=== PATIENT | male | born 1970 | race Caucasian/White ===

== ENCOUNTER 2018-07-29 08:34 | Inpatient (IN) | payer OTHER ==
[~2018-07-29] VITALS: Ht 162.6 cm; Wt 69.0 kg
[2018-07-30] MEDS ORDERED: Investigational Drug 150 MG in NS 48 ML IV ONE ×4 (08:00)
[2018-07-30] MEDS ORDERED: BIKTARVY ORAL SCH (12:00)
[2018-07-31] MEDS ORDERED: Patient's Own Med ORAL (20:24)
--- NOTE | 2018-08-12 15:15 | NUR ---
NURSE NOTES: Patient admitted for clinical study in stable condition. Orientation was given. Questions answered. Bed in lowest position, call light within reach. Will continue to monitor.
[2018-08-12 15:20] VITALS: BP 120/75
--- NOTE | 2018-08-12 15:25 | History & Physical ---
History and Physical History & Physicial Full note dictated #[id number]. 48 yo male admitted for 2 of 5 infusions of IP per [employer] protocol GS- [id number]. He feels well apart from getting over a minor cold. Exam performed this afternoon in office is normal. We will dose him tomorrow and observe the next two nights in hospital. All questions raised were addressed. Thong Marks MD Aug 12, 2018 15:25
[2018-08-12 16:19] LABS: BASOPHILS % (AUTO) 0.7 % (0.0-2.0); EOSINOPHILS % (AUTO) 3.6 % (0.0-3.0); HEMATOCRIT 44.9 % (42.0-52.0); HEMOGLOBIN 15.4 G/DL (14.2-18.0); LYMPHOCYTES % (AUTO) 30.3 % (20.0-45.0); MEAN CORPUSCULAR VOLUME 90 FL (80-99); MONOCYTES % (AUTO) 6.9 % (1.0-10.0); NEUTROPHILS % (AUTO) 58.4 % (45.0-75.0); PLATELET COUNT 229 K/UL (150-450); RED BLOOD COUNT 4.98 M/UL (4.70-6.10); RED CELL DISTRIBUTION WIDTH 11.5 % (11.6-14.8); WHITE BLOOD COUNT 7.3 K/UL (4.8-10.8)
--- NOTE | 2018-08-12 17:00 | NUR ---
NURSE NOTES: Patient's will bring Biktarby, home meds tomorrow per patient.
--- NOTE | 2018-08-12 19:46 | NUR ---
HAND-OFF: Report given to CESAR Murillo.
--- NOTE | 2018-08-12 19:47 | NUR ---
NURSE NOTES: Received report & pt from CESAR Estrella. pt lying in bed, a&ox4, in room air. No s/s of acute distress & no c/o pain at this time. Skin intact. Pt aware of NPO status except water at midnight & strict NPO @ 0700 tomorrow (08/13). Per pt, he will have his family member bring his home med Biktarvy around morning or afternoon. Will endorse to next shift. Bed in lowest position, call light within reach. Will continue to monitor.
[2018-08-12] MEDS ORDERED: BIKTARVY 50-201 EACH PO (19:57)
[2018-08-12 20:00] VITALS: BP 138/89
--- NOTE | 2018-08-12 20:15 | History and Physical Report ---
DATE OF ADMISSION: 08/12/2018 CHIEF COMPLAINT: The patient is admitted electively for participation in [employer] Clinical Trial [id number]. HISTORY OF PRESENT ILLNESS: The patient is a 48-year-old man followed in our office for well-controlled HIV infection. He is now admitted for his second of 5 planned infusions of investigational agent. PAST MEDICAL HISTORY: The patient was diagnosed with HIV in 2001 and has been on Biktarvy most recently. There is no history of virologic failure. The patient took Fosamax for osteoporosis, but is not on this recently. There is history of syphilis in 2010 and 2017 as well as herpes simplex in 2014. PAST SURGICAL HISTORY: None. ALLERGIES: Penicillin makes him have hiccups. SOCIAL HISTORY: The patient was born in [place]. He works in [place]. He has and 2 pet cats. He does not smoke cigarettes. He drinks socially. No current history of recreational drug use. REVIEW OF SYSTEMS: No fevers. The patient has had a mild cold for the past few days with nonproductive cough and slight sore throat. Denies nausea, vomiting, or diarrhea. Denies dysuria or hematuria. No headaches or rashes. MEDICATIONS: As an outpatient included Biktarvy 1 tablet daily. PHYSICAL EXAMINATION: GENERAL: Revealed a well-nourished, well-developed male in no acute distress. He is alert and oriented x4. VITAL SIGNS: Temperature was 98.0, heart rate was 77 and regular, blood pressure was 118/74. His weight was 155.8 pounds. His respiratory rate was 16. HEENT: Normocephalic, atraumatic. Pupils equal, round, reactive. Oropharynx was without thrush. The pharynx was not inflamed. NECK: Supple. There is no cervical or axillary adenopathy palpable. LUNGS: Clear to auscultation. HEART: Regular rhythm without murmurs or gallops. ABDOMEN: Soft and nontender. There is no hepatosplenomegaly. EXTREMITIES: Without cyanosis, clubbing, or edema. NEUROLOGIC: There is no focal motor or sensory deficits on exam. LABORATORY DATA: Pending. IMPRESSION: 1. Participation in the above-referenced clinical trial. 2. HIV infection, well controlled. 3. History of osteoporosis. 4. History of syphilis. 5. History of herpes simplex. DISCUSSION: The patient is a very pleasant 48-year-old man who wishes to continue participation in clinical trial. Our plan will be to infuse in the morning and to monitor him the following 2 nights. He is agreeable to this and continues to give his informed consent to participate. PLAN: Proceed per protocol. Thong Marks M.D. DR: Deann JOB#: [id number] CC: Thong Marks M.D.; [address] [place] [address], [address]; [place] [address]; Fax#: [phone] [facility]
--- NOTE | 2018-08-13 07:30 | NUR ---
HAND-OFF: Report given to CEASR Castillo. ED called for IV start for pt per Dr. Marks. Charge nurse mEilee & Head Of Product Brittani krishna.
--- NOTE | 2018-08-13 07:45 | NUR ---
NURSE NOTES: Report received from outgoing RN, rounds made. Patient laying in supine position in bed, being prepared for IV insertion by CATALYST IMPREGNATOR. Dr. Marks and his staff are at the bedside. Patient alert, oriented x4, calm. No complains of pain/SOB/NV. Call light in reach, bed in lowest position. Will continue to monitor.
[2018-08-13 08:00] VITALS: BP 130/88
[2018-08-13] MEDS ORDERED: Investigational Drug 150 MG in NS 48 ML IV ONE (08:00)
--- NOTE | 2018-08-13 08:05 | NUR ---
RN inserted IV 20g to RAC and left forearm on the 1st attempt. Patient tolerated the procedure without difficulty.
--- NOTE | 2018-08-13 09:28 | NUR ---
CASE MANAGEMENT:REVIEW 48 YR OLD MALE CLINICAL TRIAL ADMITTED FOR 2 TO 5 INFUSIONS OF IP PER [employer]
--- NOTE | 2018-08-13 09:43 | General Progress Note ---
Progress Note Progress Note S: Patient doing well, tolerated the infusion of IP this morning without AEs O: VSS Afebrile HEENT: nc/at Neck: supple Lungs: clear a/p Cor: reg rythmn, rate Abd: soft, nt Ext: no c/c/e Neuro: non-focal Labs Test 08/12/18 15:40 White Blood Count 7.3 K/UL (4.8-10.8) Red Blood Count 4.98 M/UL (4.70-6.10) Hemoglobin 15.4 G/DL (14.2-18.0) Hematocrit 44.9 % (42.0-52.0) Mean Corpuscular Volume 90 FL (80-99) Mean Corpuscular Hemoglobin 31.0 PG (27.0-31.0) Mean Corpuscular Hemoglobin Concent 34.4 G/DL (32.0-36.0) Red Cell Distribution Width 11.5 % (11.6-14.8) Platelet Count 229 K/UL (150-450) Mean Platelet Volume 6.4 FL (6.5-10.1) Neutrophils (%) (Auto) 58.4 % (45.0-75.0) Lymphocytes (%) (Auto) 30.3 % (20.0-45.0) Monocytes (%) (Auto) 6.9 % (1.0-10.0) Eosinophils (%) (Auto) 3.6 % (0.0-3.0) Basophils (%) (Auto) 0.7 % (0.0-2.0) A: 1) Participation in [id number], doing well. 2) HIV infection, well-controlled P: 1) Continue per protocol. 2) Will observe 2 nights in hospital and tentatively plan d/c in AM 08/15. 3) pt will have CBC locally in AM Thong Marks MD Aug 13, 2018 09:43
[2018-08-13 12:00] VITALS: BP 132/92
[2018-08-13 15:50] VITALS: BP 159/104
--- NOTE | 2018-08-13 16:00 | NUR ---
NURSE NOTES: Patient home medication Biktarvy taken to pharmacy in proper transporting bag and label, to be package for patient dosing schedule, slip in chart, patient aware and verbalized understanding.
--- NOTE | 2018-08-13 19:50 | NUR ---
HAND-OFF: Report given to Kasia GUERRERO.
--- NOTE | 2018-08-13 20:00 | NUR ---
NURSE NOTES: Received pt in bed, AOX4, denies any pain, no distress noted. Bed in lowest position and locked, side rails up x 2, call light within reach. Will continue to monitor.
[2018-08-13] MEDS ORDERED: BIKTARVY ORAL SCH (21:00)
[2018-08-14 02:00] VITALS: BP 111/77
--- NOTE | 2018-08-14 07:02 | NUR ---
HAND-OFF: Report given to CESAR Durham. Pt in stable condition.
[2018-08-14 08:00] VITALS: BP 125/83
--- NOTE | 2018-08-14 08:00 | NUR ---
NURSE NOTES: Received report from Aurelio Encarnacion pt a/a/o x4 with no signs of distress or other issues at this time. pt on a regular diet, and tolerating well with no n/v. pt able to ambulate the room with steady gait. call light within reach. bed in lowest position, side rales up x2. I will f/u as needed.
[2018-08-14 08:39] LABS: BASOPHILS % (AUTO) 1.1 % (0.0-2.0); EOSINOPHILS % (AUTO) 4.3 % (0.0-3.0); HEMATOCRIT 43.9 % (42.0-52.0); HEMOGLOBIN 15.2 G/DL (14.2-18.0); LYMPHOCYTES % (AUTO) 32.3 % (20.0-45.0); MEAN CORPUSCULAR VOLUME 89 FL (80-99); MONOCYTES % (AUTO) 6.9 % (1.0-10.0); NEUTROPHILS % (AUTO) 55.4 % (45.0-75.0); PLATELET COUNT 212 K/UL (150-450); RED BLOOD COUNT 4.92 M/UL (4.70-6.10); RED CELL DISTRIBUTION WIDTH 11.7 % (11.6-14.8)
[2018-08-14 12:00] VITALS: BP 118/82
--- NOTE | 2018-08-14 14:53 | General Progress Note ---
Progress Note Progress Note S: Pt doing well today. He reports having had a moderate headache yesterday afternoon which has now resolved; pt took 2 Tylenol. O: VSS Afebrile. HEENT: nc/at Neck: supple Lungs: clear Cor: reg, no murmur Abd: soft, NT Neuro: non-focal for motor or sensory deficits Labs Test 08/12/18 15:40 08/14/18 08:15 White Blood Count 7.3 K/UL (4.8-10.8) 6.0 K/UL (4.8-10.8) Red Blood Count 4.98 M/UL (4.70-6.10) 4.92 M/UL (4.70-6.10) Hemoglobin 15.4 G/DL (14.2-18.0) 15.2 G/DL (14.2-18.0) Hematocrit 44.9 % (42.0-52.0) 43.9 % (42.0-52.0) Mean Corpuscular Volume 90 FL (80-99) 89 FL (80-99) Mean Corpuscular Hemoglobin 31.0 PG (27.0-31.0) 30.8 PG (27.0-31.0) Mean Corpuscular Hemoglobin Concent 34.4 G/DL (32.0-36.0) 34.5 G/DL (32.0-36.0) Red Cell Distribution Width 11.5 % (11.6-14.8) 11.7 % (11.6-14.8) Platelet Count 229 K/UL (150-450) 212 K/UL (150-450) Mean Platelet Volume 6.4 FL (6.5-10.1) 6.8 FL (6.5-10.1) Neutrophils (%) (Auto) 58.4 % (45.0-75.0) 55.4 % (45.0-75.0) Lymphocytes (%) (Auto) 30.3 % (20.0-45.0) 32.3 % (20.0-45.0) Monocytes (%) (Auto) 6.9 % (1.0-10.0) 6.9 % (1.0-10.0) Eosinophils (%) (Auto) 3.6 % (0.0-3.0) 4.3 % (0.0-3.0) Basophils (%) (Auto) 0.7 % (0.0-2.0) 1.1 % (0.0-2.0) A: 1) participation in [id number] 2) HIV, well controlled 3) Headache, resolved P: 1) Continue to observe per protocol 2) Will plan on discharge tomorrow morning, with follow-up in the office next week. Thong Marks MD Aug 14, 2018 14:53
[2018-08-14] MEDS ORDERED: BIKTARVY ORAL SCH (15:00)
[2018-08-14 16:00] VITALS: BP 128/78
--- NOTE | 2018-08-14 19:21 | NUR ---
NURSE NOTES:Patient received tre Haywood R.N. . Patient A/A/AOX4 . Patient denies ny pain at this time . no s/s of distress LFA g#20 H/L patent and intact . call light within reach . bed in low position at all times . will continue to monitor.
--- NOTE | 2018-08-14 19:21 | NUR ---
HAND-OFF: Report given to Astrid LEDGER CLERK, pt in stable condition.
[2018-08-14] MEDS ORDERED: Patient's Own Med ORAL (21:13)
--- NOTE | 2018-08-15 07:10 | NUR ---
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 and check patient personal belongings .
[2018-08-15 07:51] VITALS: BP 119/81
--- NOTE | 2018-08-15 08:00 | NUR ---
NURSE NOTES: Received report from Astrid GUERRERO, pt a/a/o x4 laying in bed with no signs of distress or other issues at this time. Iv on the left FA gauge#20 heplock. call light within reach. bed in lowest position. side rales up x2. I will f/u as needed.
--- NOTE | 2018-08-15 08:38 | NUR ---
NURSE NOTES: discharge instructions and belongings given to patient as well as his home medications. pt left the floor walking with no signs of distress or other issues at this time. pt's family will provide transportation. I will f/u as needed.
[2018-08-15 09:15] LABS: BASOPHILS % (AUTO) 0.7 % (0.0-2.0); EOSINOPHILS % (AUTO) 3.8 % (0.0-3.0); HEMATOCRIT 44.5 % (42.0-52.0); HEMOGLOBIN 15.1 G/DL (14.2-18.0); LYMPHOCYTES % (AUTO) 36.2 % (20.0-45.0); MEAN CORPUSCULAR VOLUME 90 FL (80-99); MONOCYTES % (AUTO) 7.2 % (1.0-10.0); NEUTROPHILS % (AUTO) 52.2 % (45.0-75.0); PLATELET COUNT 211 K/UL (150-450); RED BLOOD COUNT 4.92 M/UL (4.70-6.10); RED CELL DISTRIBUTION WIDTH 12.1 % (11.6-14.8); WHITE BLOOD COUNT 6.3 K/UL (4.8-10.8)
--- NOTE | 2018-08-15 18:15 | Discharge Summary ---
DATE OF ADMISSION: 08/12/2018 DATE OF DISCHARGE: 08/15/2018 DISCHARGE DIAGNOSES: 1. Participation in [employer] clinical trial [id number]. 2. Human immunodeficiency virus infection, well controlled. 3. History of osteoporosis. 4. History of syphilis. 5. History of herpes simplex. HISTORY OF PRESENT ILLNESS AND HOSPITAL COURSE: The patient is a 48-year-old man followed in our office for HIV infection which has been well controlled on Biktarvy for some time. There is no history of virologic failure in the past in this patient. He was given the opportunity to participate in the above mentioned clinical trial and was admitted for the second of planned 5 infusions of investigational product (or placebo) on a biweekly basis. The patient wished to participate and was admitted. The patient tolerated the infusion well. The patient reported [id number] headache several hours after the infusion, but this resolved with Tylenol and the patient currently has no complaints. He was discharged to home in good condition. Follow-up will be in the office next week. DISCHARGE MEDICATIONS: Biktarvy one tablet daily. Thong Marks M.D. DR: KEZIA JOB#: [id number] CC: Thong Marks M.D.; [address] [place] [address], [address]; ; [place] [address]; Fax#: [phone]
== END 2018-08-15 08:40 | disposition home or self-care (01) | DRG 977 ==
LOC: 3E 08-12 15:09
DX: B20 Human immunodeficiency virus [HIV] disease (principal); Z00.6 Encounter for examination for normal comparison and control in clinical research program; M81.0 Age-related osteoporosis without current pathological fracture; R51 Headache; Z86.19 Personal history of other infectious and parasitic diseases
CPT/HCPCS: 36415; 85025

== ENCOUNTER 2018-07-29 08:47 | Inpatient (IN) | payer OTHER ==
[~2018-07-29] VITALS: Ht 162.6 cm; Wt 68.7 kg
--- NOTE | 2018-07-29 16:00 | NUR ---
NURSE NOTES: Patient arrived to unit via direct admission. Stable on arrival, no s/s acute distress, ambulatory. Per order from Dr. Marks, patient only needs vital signs assessed 12 and 18 hours after infusion. Patient oriented to room and unit policies, plan of care and reports understanding. Belongings checked with patient and RN. Side rails upx2, bed low and locked, call light in reach. Will continue to monitor.
--- NOTE | 2018-07-29 16:08 | History & Physical ---
History and Physical History & Physicial Full note dictated #[id number]. 48 yo male admitted today for participation in [employer] clinical trial [id number]. He has chronic stable HIV infection on Bictarvy with excellent virologic control and preserved CD4 counts. He has no significant comorbidities. PE: T 97.9 HEENT: n/c Neck: supple Lungs: clear Cor: reg Abd: soft, NT A: 1) HIV infection, well controled 2) h/o osteoporosis P: 1) manage per protocol. We plan to infuse him tomorrow morning. He has been briefed in detail regarding unknown risks and benefits associated with this medication, and has verbalized understanding and his desire to proceed. All questions offered were addressed. Thong Marks MD Jul 29, 2018 16:08
[2018-07-29 16:58] LABS: BASOPHILS % (AUTO) 0.6 % (0.0-2.0); EOSINOPHILS % (AUTO) 1.9 % (0.0-3.0); HEMATOCRIT 46.7 % (42.0-52.0); HEMOGLOBIN 15.8 G/DL (14.2-18.0); LYMPHOCYTES % (AUTO) 35.7 % (20.0-45.0); MEAN CORPUSCULAR VOLUME 92 FL (80-99); MONOCYTES % (AUTO) 7.3 % (1.0-10.0); NEUTROPHILS % (AUTO) 54.6 % (45.0-75.0); PLATELET COUNT 234 K/UL (150-450); RED BLOOD COUNT 5.09 M/UL (4.70-6.10); RED CELL DISTRIBUTION WIDTH 11.7 % (11.6-14.8); WHITE BLOOD COUNT 7.2 K/UL (4.8-10.8)
--- NOTE | 2018-07-29 19:30 | History and Physical Report ---
DATE OF ADMISSION: 07/29/2018 INPATIENT HISTORY AND PHYSICAL CHIEF COMPLAINT: The patient is admitted for participation in [employer] clinical trial, [id number]. HISTORY OF PRESENT ILLNESS: The patient is a 48-year-old man followed by Dr. Thong Jensen for HIV infection, which is well controlled. He is electively admitted for participation in the above drug study. PAST MEDICAL HISTORY: The patient had the usual childhood diseases. He was diagnosed with HIV in 2001 without any baseline resistance. He has most recently been on Biktarvy. He has never had virologic failure. There is also history of osteoporosis, for which he took Fosamax, but discontinued this several months ago. There is a history of syphilis in 2010 and 2017 and herpes simplex in 2014. PAST SURGICAL HISTORY: None. PREVIOUS HOSPITALIZATIONS: None. ALLERGIES: The patient states that penicillins make him have hiccups. SOCIAL HISTORY: The patient was born in [place]. 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 He does not smoke cigarettes. He drinks socially. There is no current history of recreational drug use. REVIEW OF SYSTEMS: No fevers. No cough or shortness of breath. No nausea, vomiting, or diarrhea. No dysuria or hematuria. No headaches. No rashes. CURRENT MEDICATIONS: Biktarvy one tablet daily. PHYSICAL EXAMINATION: VITAL SIGNS: Temperature of 97.7, heart rate of 76, and blood pressure of 132/82, his weight was 154 pounds, and respirations were 17. HEENT: Normocephalic and atraumatic. Pupils are equal, round, and reactive. Oropharynx was without thrush or leukoplakia. NECK: Supple. LUNGS: Clear to auscultation. HEART: Regular rhythm without murmurs or gallops. ABDOMEN: Soft and nontender. No hepatosplenomegaly. EXTREMITIES: Without cyanosis, clubbing, or edema. NEUROLOGIC: Grossly nonfocal. LABORATORY DATA: Pending. ASSESSMENT: 1. HIV infection, well controlled. 2. History of osteoporosis. DISCUSSION: The patient is a very pleasant 48-year-old man, who electively admitted for participation in a clinical trial. He has given his consent to participate in this trial. He will receive investigational agent tomorrow morning and we anticipate he will be discharged on Thursday. He will be observed closely for adverse events. PLAN: Proceed per protocol. Thong Marks M.D. DR: KEZIA JOB#: [id number] CC: LIZANDRO
[2018-07-29] MEDS: BIKTARVY ORAL SCH (19:32)
--- NOTE | 2018-07-29 19:45 | NUR ---
HAND-OFF: Report given to Jazz GUERRERO. Patient in stable condition.
--- NOTE | 2018-07-29 22:16 | NUR ---
NURSE NOTES: Patient is aaox4. No signs of distress. Per Dr. Marks, IV's will be started in morning, after 0700. Bed low, call light within reach.
--- NOTE | 2018-07-30 07:28 | NUR ---
HAND-OFF: Report given to CESAR Machuca. Patient stable.
[2018-07-30] MEDS ORDERED: Investigational Drug 150 MG in NS 48 ML IV ONE ×4 (08:00)
--- NOTE | 2018-07-30 08:22 | NUR ---
NURSE NOTES: Received report from Jazz GUERRERO. During rounds patient is awake alert and oriented x4, in bed. No s/s acute distress noted. Dr. Marks is at the bedside, per order from MD, 2 IV's inserted, RAC 20G and left hand 20G, patent and flushing well. Clinical trial drug started with Dr. Marks at the bedside supervising. MD will remain at the bedside for remainder of infusion. No s/s acute distress. Clinical trial nurses at the bedside as well. Side rails upx2, bed low and locked, call light in reach. Will continue to monitor.
[2018-07-30] MEDS ORDERED: BIKTARVY ORAL SCH (12:00)
--- NOTE | 2018-07-30 16:27 | General Progress Note ---
Progress Note Progress Note S: no new complaints. Pt tolerated infusion of IP well this morning. O: VSS Afebrile HEENT: nc/AT Neck: supple Lungs: clear a/ Cor: reg rhythm Abd: soft, NT Ext: no c/c/e Labs Test 07/29/18 15:20 White Blood Count 7.2 K/UL (4.8-10.8) Red Blood Count 5.09 M/UL (4.70-6.10) Hemoglobin 15.8 G/DL (14.2-18.0) Hematocrit 46.7 % (42.0-52.0) Mean Corpuscular Volume 92 FL (80-99) Mean Corpuscular Hemoglobin 31.1 PG (27.0-31.0) Mean Corpuscular Hemoglobin Concent 33.9 G/DL (32.0-36.0) Red Cell Distribution Width 11.7 % (11.6-14.8) Platelet Count 234 K/UL (150-450) Mean Platelet Volume 5.6 FL (6.5-10.1) Neutrophils (%) (Auto) 54.6 % (45.0-75.0) Lymphocytes (%) (Auto) 35.7 % (20.0-45.0) Monocytes (%) (Auto) 7.3 % (1.0-10.0) Eosinophils (%) (Auto) 1.9 % (0.0-3.0) Basophils (%) (Auto) 0.6 % (0.0-2.0) A: 1) Participation in [id number]. Pt doing well, no AEs noted 2) HIV P: 1) Continue management per protocol 2) check local CBC in AM 3) tentative plan for d/c 08/01 Thong Marks MD Jul 30, 2018 16:27
[2018-07-30] MEDS: BIKTARVY ORAL SCH (18:56)
--- NOTE | 2018-07-30 19:00 | NUR ---
NURSE NOTES: Patient reported tenderness around left hand IV site. No redness, leaking or signs of infiltration noted, but patient reported that the IV was painful and requested for it to be removed. IV removed intact.
--- NOTE | 2018-07-30 19:30 | NUR ---
HAND-OFF: Report given to Kadie GUERRERO. Patient in stable condition.
--- NOTE | 2018-07-30 19:30 | NUR ---
NURSE NOTES: Pt lying in bed w/bed in lowest position and call light within reach. Pt A&Ox4, VSS, and in no apparent distress at this time. Pt has no IV access at this time and has no complaints or concerns at this time. Reminded pt nurse aide will take VS at 0200 tomorrow morning; pt verbalized understanding. Will continue to monitor.
[2018-07-31 02:00] VITALS: BP 109/77
--- NOTE | 2018-07-31 07:20 | NUR ---
HAND-OFF: Report given to CESAR Bermeo.
--- NOTE | 2018-07-31 07:47 | General Progress Note ---
Progress Note Progress Note S: Feels well, had mild nausea last night he thinks was a result of being stuck for IVs. This has resolved, and he has an appetite. O: VSS. Afebrile. HEENT: nc/at Lungs: clear Cor: reg no murmur Abd: soft, NT Ext: no c/c/e LAB CBC to be done this AM A: 1) participation in [id number] 2) HIV, well-controlled P: 1) Continue to manage per protocol for the next 24 hours; anticipate discharge in AM 10. Thong Marks MD Jul 31, 2018 07:47
--- NOTE | 2018-07-31 07:52 | NUR ---
NURSE NOTES: AWAKE/ALERT. NO C/O PAIN . IN NO DISTRESS.
[2018-07-31 08:00] VITALS: BP 107/74
[2018-07-31 08:24] LABS: BASOPHILS % (AUTO) 0.8 % (0.0-2.0); EOSINOPHILS % (AUTO) 1.7 % (0.0-3.0); HEMOGLOBIN 15.3 G/DL (14.2-18.0); LYMPHOCYTES % (AUTO) 32.3 % (20.0-45.0); MEAN CORPUSCULAR VOLUME 91 FL (80-99); MONOCYTES % (AUTO) 6.4 % (1.0-10.0); NEUTROPHILS % (AUTO) 58.8 % (45.0-75.0); PLATELET COUNT 218 K/UL (150-450); RED BLOOD COUNT 4.95 M/UL (4.70-6.10); WHITE BLOOD COUNT 5.8 K/UL (4.8-10.8)
--- NOTE | 2018-07-31 18:59 | NUR ---
NURSE NOTES: CONDITION STABLE. IN NO DISTRESS.
[2018-07-31] MEDS: BIKTARVY ORAL SCH (19:03)
--- NOTE | 2018-07-31 19:05 | NUR ---
NURSE NOTES: Report taken from CESAR Bermeo. Patient A&Ox4. No signs of distress on room air, no pain. Patient is here for clinical trial for Dr. Marks. Vitals stable. Bed in lowest position, call light within reach.
--- NOTE | 2018-07-31 19:30 | NUR ---
HAND-OFF: Report given to Elba CHAVIRA RN.
[2018-07-31] MEDS ORDERED: Patient's Own Med ORAL (20:24)
--- NOTE | 2018-08-01 07:25 | NUR ---
HAND-OFF: Report given to ARON Rodas. Patient preparing to be d/c.
--- NOTE | 2018-08-01 07:35 | NUR ---
NURSE NOTES: patient is in the room walking and preparing for his discharge. instructions given and explained. his own med given. personal belongings reviewed and noted. awaits for his spouse, Shiv to pick him up. IV heplock was removed by previous nurse. patient is in stable condition. will cont to monitor.
[2018-08-01 07:55] VITALS: BP 110/75
--- NOTE | 2018-08-01 08:43 | NUR ---
NURSE NOTES: patient discharge to home. accompanied by Shiv, spouse. Josh from Dr. Marks's office personnel was present to draw blood prior discharge. patient as well spoke with Dr Marks over the phone. patient is in stable condition. made aware of the f/u visit @ Dr. Marks's office. no IV access. ambulate with a steady gait.
[2018-08-01 09:00] LABS: BASOPHILS % (AUTO) 0.5 % (0.0-2.0); EOSINOPHILS % (AUTO) 2.5 % (0.0-3.0); HEMATOCRIT 45.6 % (42.0-52.0); HEMOGLOBIN 15.7 G/DL (14.2-18.0); LYMPHOCYTES % (AUTO) 32.8 % (20.0-45.0); MEAN CORPUSCULAR VOLUME 91 FL (80-99); MONOCYTES % (AUTO) 6.9 % (1.0-10.0); NEUTROPHILS % (AUTO) 57.3 % (45.0-75.0); PLATELET COUNT 233 K/UL (150-450); RED BLOOD COUNT 5.01 M/UL (4.70-6.10); WHITE BLOOD COUNT 5.8 K/UL (4.8-10.8)
--- NOTE | 2018-08-02 15:30 | Discharge Summary ---
DATE OF ADMISSION: 07/29/2018 DATE OF DISCHARGE: 08/01/2018 DISCHARGE DIAGNOSES: 1. Participation in [employer] clinical trial [id number]. 2. HIV infection, well controlled. 3. History of osteoporosis. HISTORY OF PRESENT ILLNESS AND HOSPITAL COURSE: The patient is a 48-year-old man followed by Dr. Thong Jensen, for HIV infection, which has been well controlled. The patient wished to participate in the above captioned clinical trial and was electively admitted on the for this. The patient received the investigational product (or placebo) on July 30, 2018. The infusion was tolerated without any evident adverse events. The patient was observed the following two nights in the hospital and was discharged to home in good condition. DISCHARGE MEDICATIONS: Include Biktarvy one tablet daily. Followup will be at the office within a week. It is anticipated that the patient will return every two weeks for repeat infusions four more times. Thong Marks M.D. DR: JOSE JOB#: [id number] CC: Thong Marks M.D.; [address] [facility]; [place] [address]; Fax#: [phone]
== END 2018-08-01 10:59 | disposition home or self-care (01) | DRG 951 ==
LOC: 3E 15:06
DX: Z00.6 Encounter for examination for normal comparison and control in clinical research program (principal); B20 Human immunodeficiency virus [HIV] disease; M81.0 Age-related osteoporosis without current pathological fracture
CPT/HCPCS: 36415; 85025

== ENCOUNTER 2018-08-12 08:54 | Inpatient (IN) | payer OTHER ==
[~2018-08-12] VITALS: Ht 162.6 cm; Wt 70.8 kg
[~2018-08-12 08:54] MED LIST: Patient's Own Med ORAL
[2018-08-12] MEDS ORDERED: BIKTARVY 50-201 EACH PO (19:57)
[2018-08-14] MEDS ORDERED: Patient's Own Med ORAL (21:13)
--- NOTE | 2018-09-09 15:35 | History & Physical ---
History and Physical History & Physicial Full H&P dictated #[id number] 48 yo male electively admitted for 4 (of 5) infusions of GS-9722 (or placebo) per [employer] protocol [id number]. He feels well and has no new complaints PE: wnwd male NAD T 97.7 BP 123/80 HEENT: nc/at Lungs: clear Cor: reg Abd: soft, NT A: participation in above clinical trial HIV, well-controlled h/o osteoporosis h/o syphilis h/o HSV h/o atrial arrhythmia P: infuse IP in AM manage per protocol Thong Marks MD Sep 09, 2018 15:35
[2018-09-09 15:52] LABS: BASOPHILS % (AUTO) 1.2 % (0.0-2.0); EOSINOPHILS % (AUTO) 1.8 % (0.0-3.0); HEMATOCRIT 43.6 % (42.0-52.0); LYMPHOCYTES % (AUTO) 36.6 % (20.0-45.0); MEAN CORPUSCULAR VOLUME 90 FL (80-99); NEUTROPHILS % (AUTO) 52.5 % (45.0-75.0); PLATELET COUNT 253 K/UL (150-450); RED BLOOD COUNT 4.86 M/UL (4.70-6.10); RED CELL DISTRIBUTION WIDTH 11.4 % (11.6-14.8); WHITE BLOOD COUNT 8.1 K/UL (4.8-10.8)
[2018-09-09 16:19] VITALS: BP 124/80
--- NOTE | 2018-09-09 19:10 | NUR ---
HAND-OFF: Report given to ARON Jang.
--- NOTE | 2018-09-09 19:30 | NUR ---
NURSE NOTES: RECEIVED PATIENT LYING IN BED, AWAKE, ALERT/ORIENTED X4, VERY PLEASANT, DENIES PAIN. NO SIGNS AND SYMPTOMS OF ACUTE CARDIO RESPIRATORY DISTRESS/SHORTNESS OF BREATH, NO PERIPHERAL EDEMA NOTED. NO IV ACCESS, ED WILL INSERT IN AM PRIOR TO INFUSION AT 0830. PATIENT NPO EXCEPT WATER AFTER MIDNIGHT - STRICT NPO AFTER 0730 AM. NO REPORT OF GI DISCOMFORT. SIDE RAILS UP X2 FOR MOBILITY, BED IN LOWEST POSITION FOR SAFETY. CALL LIGHT WITHIN REACH. NAD. DOES NOT WANT TO BE AWAKENED FOR VITALS.
[2018-09-09 20:00] VITALS: BP 127/86
[2018-09-09] MEDS: BIKTARVY ORAL SCH (20:21)
--- NOTE | 2018-09-09 22:00 | History and Physical Report ---
DATE OF ADMISSION: 09/09/2018 CHIEF COMPLAINT: The patient is electively admitted for continued participation in [employer] protocol, [id number]. HISTORY OF PRESENT ILLNESS: The patient is a 48-year-old man followed by Dr. Thong Jensen for well-controlled human immunodeficiency virus infection. He is now electively admitted for the fourth of five projected bimonthly doses of investigational agent GS-9722 (or placebo). PAST MEDICAL HISTORY: The patient had the usual childhood diseases. He was diagnosed with human immunodeficiency virus in 2001. He has never had virologic failure and has been most recently on Biktarvy. The patient has a history of osteoporosis for which he was given Fosamax for time. The patient has a history of syphilis and herpes simplex. PAST SURGICAL HISTORY: No significant past surgical history or prior hospitalizations related to this study. MEDICATIONS: Include Biktarvy 1 tablet once a day. ALLERGIES: The patient states that penicillin causes hiccups. SOCIAL HISTORY: The patient was born and raised in [place]. 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 He has 2 pet cats. He is a nonsmoker. No current recreational drug use. He drinks socially. REVIEW OF SYSTEMS: No fevers, no cough, no shortness of breath. No nausea, vomiting, diarrhea. No dysuria or hematuria. No headaches. No skin rashes. PHYSICAL EXAMINATION: VITAL SIGNS: Temperature of 97.7, heart rate is 72, which was regular, and blood pressure was 123/80. His weight was 157.6 pounds and 14 respirations per minute. HEENT: Normocephalic and atraumatic. Pupils are equal, round, and reactive. Oropharynx was without thrush or leukoplakia. NECK: Supple. LUNGS: Clear to auscultation. HEART: Had a regular rhythm without murmurs or gallops. ABDOMEN: Soft and nontender. No hepatosplenomegaly. NEUROLOGIC: Grossly nonfocal. SKIN: Had no rashes. IMPRESSION: 1. Elective admission for participation in drug study. 2. Human immunodeficiency virus infection, well controlled. 3. History of osteoporosis. 4. History of syphilis. 5. History of herpes simplex. 6. History of atrial arrhythmia DISCUSSION: The patient is a very pleasant 48-year-old who wishes to continue his participation in the above captioned clinical trial. We will plan on dosing him tomorrow and observing him the next 2 nights in the hospital for adverse events under plan managed per protocol. Thong Marks M.D. DR: ALEXANDRA JOB#: [id number] CC: Thong Marks M.D.; [address] [place] [address]; [address]; [place] [address]; Fax#: [phone] [facility]
--- NOTE | 2018-09-10 07:30 | NUR ---
NURSE NOTES: Patient lying in bed awake. No complain of pain or distress at this time. Skin intact and dry. Bed lowest position. Call light within reach. Will continue to monitor.
[2018-09-10 08:00] VITALS: BP 112/75
[2018-09-10] MEDS ORDERED: Investigational Drug 150 MG in NS 48 ML IV ONE (08:30)
--- NOTE | 2018-09-10 08:38 | NUR ---
CASE MANAGEMENT:review 48 YR OLD MALE HERE FOR CLINICAL TRIAL ADMITTED TO MED[facility]
[2018-09-10 12:00] VITALS: BP 125/83
--- NOTE | 2018-09-10 16:30 | General Progress Note ---
Progress Note Progress Note S: Pt tolerated infusion of IP without any observed AEs O: VSS Afebrile HEENT: nc/at Neck: supple Lungs: clear Cor: reg Abd: soft, NT Skin: no rashes Labs Test 09/09/18 15:40 White Blood Count 8.1 K/UL (4.8-10.8) Red Blood Count 4.86 M/UL (4.70-6.10) Hemoglobin 15.0 G/DL (14.2-18.0) Hematocrit 43.6 % (42.0-52.0) Mean Corpuscular Volume 90 FL (80-99) Mean Corpuscular Hemoglobin 30.8 PG (27.0-31.0) Mean Corpuscular Hemoglobin Concent 34.4 G/DL (32.0-36.0) Red Cell Distribution Width 11.4 % (11.6-14.8) Platelet Count 253 K/UL (150-450) Mean Platelet Volume 6.2 FL (6.5-10.1) Neutrophils (%) (Auto) 52.5 % (45.0-75.0) Lymphocytes (%) (Auto) 36.6 % (20.0-45.0) Monocytes (%) (Auto) 8.0 % (1.0-10.0) Eosinophils (%) (Auto) 1.8 % (0.0-3.0) Basophils (%) (Auto) 1.2 % (0.0-2.0) A: 1) Participation in [id number] clinical trial 2) HIV, well controlled 3) h/o atrial arrhythmias P: 1) continue to manage per protocol 2) check CBC in AM 3) anticipate discharge 09/12. Thong Marks MD Sep 10, 2018 16:30
--- NOTE | 2018-09-10 19:30 | NUR ---
HAND-OFF: Report given to Aurelio GUERRERO. Patient in stable condition.
[2018-09-10] MEDS: BIKTARVY ORAL SCH (21:00)
--- NOTE | 2018-09-10 22:27 | NUR ---
NURSE NOTES: Recieved pt Awake alert and oriented x4. Denies any pain or discomfort. No acute distress at this time. VS WNL.
[2018-09-11 02:30] VITALS: BP 143/78
--- NOTE | 2018-09-11 07:24 | NUR ---
HAND-OFF: Report given to Josh GUERRERO.
[2018-09-11 08:00] VITALS: BP 125/78
[2018-09-11 09:12] LABS: BASOPHILS % (AUTO) 0.6 % (0.0-2.0); EOSINOPHILS % (AUTO) 2.1 % (0.0-3.0); HEMATOCRIT 43.8 % (42.0-52.0); HEMOGLOBIN 14.8 G/DL (14.2-18.0); LYMPHOCYTES % (AUTO) 36.4 % (20.0-45.0); MEAN CORPUSCULAR VOLUME 89 FL (80-99); MONOCYTES % (AUTO) 7.7 % (1.0-10.0); NEUTROPHILS % (AUTO) 53.3 % (45.0-75.0); PLATELET COUNT 239 K/UL (150-450); WHITE BLOOD COUNT 5.9 K/UL (4.8-10.8)
[2018-09-11 12:00] VITALS: BP 127/76
--- NOTE | 2018-09-11 12:40 | General Progress Note ---
Progress Note Progress Note S: Pt doing well, no new complaints or AEs observed/reported O: VSS, Afebrile HEENT: nc/at Lungs: clear Cor: reg rhythm Abd: soft, NT Ext: no c/c/e Skin: no rashes Labs Test 09/09/18 15:40 09/11/18 09:03 White Blood Count 8.1 K/UL (4.8-10.8) 5.9 K/UL (4.8-10.8) Red Blood Count 4.86 M/UL (4.70-6.10) 4.90 M/UL (4.70-6.10) Hemoglobin 15.0 G/DL (14.2-18.0) 14.8 G/DL (14.2-18.0) Hematocrit 43.6 % (42.0-52.0) 43.8 % (42.0-52.0) Mean Corpuscular Volume 90 FL (80-99) 89 FL (80-99) Mean Corpuscular Hemoglobin 30.8 PG (27.0-31.0) 30.2 PG (27.0-31.0) Mean Corpuscular Hemoglobin Concent 34.4 G/DL (32.0-36.0) 33.8 G/DL (32.0-36.0) Red Cell Distribution Width 11.4 % (11.6-14.8) 12.0 % (11.6-14.8) Platelet Count 253 K/UL (150-450) 239 K/UL (150-450) Mean Platelet Volume 6.2 FL (6.5-10.1) 6.1 FL (6.5-10.1) Neutrophils (%) (Auto) 52.5 % (45.0-75.0) 53.3 % (45.0-75.0) Lymphocytes (%) (Auto) 36.6 % (20.0-45.0) 36.4 % (20.0-45.0) Monocytes (%) (Auto) 8.0 % (1.0-10.0) 7.7 % (1.0-10.0) Eosinophils (%) (Auto) 1.8 % (0.0-3.0) 2.1 % (0.0-3.0) Basophils (%) (Auto) 1.2 % (0.0-2.0) 0.6 % (0.0-2.0) A: 1) participation in [id number] 2) well-controlled HIV infection on Biktarvy 3) h/o osteoporosis treated with Fosamax 4) h/o HSV P: 1) continue management per [id number] 2) If stable over night, will plan on discharge tomorrow. Thong Marks MD Sep 11, 2018 12:40
[2018-09-11 16:00] VITALS: BP 135/83
--- NOTE | 2018-09-11 19:45 | NUR ---
HAND-OFF: Report given to Aurelio GUERRERO. Patient in stable condition.
--- NOTE | 2018-09-11 20:00 | NUR ---
NURSE NOTES: Received pt in room. AOx4. Denies SOB or pain. No acute distress at this time.
[2018-09-11 20:45] VITALS: BP 126/79
[2018-09-11] MEDS: BIKTARVY ORAL SCH (20:47)
--- NOTE | 2018-09-12 07:58 | NUR ---
NURSE NOTES: Received report from Aurelio GUERRERO. Patient is awake alert and oriented x4, no acute distress noted. No IV. Discharge instructions printed and prepared by shift boss. Patient will be discharged later in morning. Will continue to monitor.
[2018-09-12 09:10] LABS: BASOPHILS % (AUTO) 0.8 % (0.0-2.0); EOSINOPHILS % (AUTO) 2.7 % (0.0-3.0); HEMATOCRIT 45.4 % (42.0-52.0); HEMOGLOBIN 15.3 G/DL (14.2-18.0); LYMPHOCYTES % (AUTO) 36.4 % (20.0-45.0); MEAN CORPUSCULAR VOLUME 90 FL (80-99); NEUTROPHILS % (AUTO) 52.1 % (45.0-75.0); PLATELET COUNT 251 K/UL (150-450); RED BLOOD COUNT 5.05 M/UL (4.70-6.10); RED CELL DISTRIBUTION WIDTH 11.8 % (11.6-14.8); WHITE BLOOD COUNT 6.6 K/UL (4.8-10.8)
--- NOTE | 2018-09-12 10:04 | NUR ---
NURSE NOTES: Patient discharged. No acute distress noted. Discharge education and belongings reviewed with patient by charge nurse and patient reports understanding of education. Patient escorted off unit to private vehicle.
--- NOTE | 2018-09-14 13:51 | Discharge Summary ---
DATE OF ADMISSION: 09/09/2018 DATE OF DISCHARGE: 09/12/2018 DISCHARGE DIAGNOSES: 1. Participation in [employer] clinical trial [id number]. 2. Human immunodeficiency virus infection, well controlled. 3. History of osteoporosis. 4. History of atrial arrhythmias. HISTORY OF PRESENT ILLNESS/HOSPITAL COURSE: The patient is a 48-year-old man, who is electively admitted for the fourth of 5 projected biweekly administrations of investigational product per the above protocol. The patient has been doing well and has no new complaints. He was admitted on 09/09/2018 and given the investigational product on 09/10/2018, which he tolerated well without any observed adverse events. The patient was discharged home in stable condition on 09/12/2018 with follow-up in the office the following week. DISCHARGE MEDICATIONS: Included Biktarvy 1 tablet once a day. Thong Marks M.D. DR: ALEXANDRA JOB#: [id number] CC: Thong Marks M.D.; [address] [facility]; [place] [address]; Fax#: [phone]
== END 2018-09-12 09:15 | disposition home or self-care (01) | DRG 977 ==
LOC: 3E 09-09 15:15
DX: B20 Human immunodeficiency virus [HIV] disease (principal); Z00.6 Encounter for examination for normal comparison and control in clinical research program; M81.0 Age-related osteoporosis without current pathological fracture; Z86.19 Personal history of other infectious and parasitic diseases
CPT/HCPCS: 36415; 85025

== ENCOUNTER 2018-08-26 08:51 | Inpatient (IN) | payer OTHER ==
[~2018-08-26] VITALS: Ht 162.6 cm; Wt 153.8 kg
[~2018-08-26 08:51] MED LIST changes: +BIKTARVY 50-201 EACH PO
--- NOTE | 2018-08-26 15:31 | History & Physical ---
History and Physical History & Physicial Full H&P dictated #[id number]. 48 yo male electively admitted for 3rd of 5 planned infusions of [id number] per [employer] protocol [id number]. He has been well over the past 2 weeks since prior infusion except for some minor diarrhea yesterday. VSS T 97.6 HEENT: nc/at Lungs: clear Cor: reg no murmur Abd: soft, NT Skin: no rashes A: 1) HIV infection well controlled on Biktarvy 2) participation in above clinical trial P: 1) Will dose tomorrow at 8 am and observe closely over next two nights. Thong Marks MD Aug 26, 2018 15:31
[2018-08-26 15:56] LABS: EOSINOPHILS % (AUTO) 5.6 % (0.0-3.0); HEMATOCRIT 45.1 % (42.0-52.0); HEMOGLOBIN 15.5 G/DL (14.2-18.0); LYMPHOCYTES % (AUTO) 38.5 % (20.0-45.0); MEAN CORPUSCULAR VOLUME 90 FL (80-99); NEUTROPHILS % (AUTO) 46.9 % (45.0-75.0); PLATELET COUNT 232 K/UL (150-450); RED BLOOD COUNT 5.03 M/UL (4.70-6.10); RED CELL DISTRIBUTION WIDTH 11.6 % (11.6-14.8); WHITE BLOOD COUNT 5.5 K/UL (4.8-10.8)
--- NOTE | 2018-08-26 19:15 | NUR ---
NURSE NOTES: Report received from CESAR Trujillo. Patient in stable condition. Alert oriented. Bed in low position, locked, side rails up x2. Call light within reach. Patient aware of dietary restrictions as prescribed. Will continue to monitor as needed.
--- NOTE | 2018-08-26 19:26 | NUR ---
HAND-OFF: Report given to Kasia GUERRERO.
--- NOTE | 2018-08-26 19:31 | History and Physical Report ---
DATE OF ADMISSION: 08/26/2018 CHIEF COMPLAINT: The patient is electively admitted for participation in [employer] clinical trial [id number]. HISTORY OF PRESENT ILLNESS: The patient is a 48-year-old man who electively admitted now for third of 5 planned biweekly infusions of investigational agent. PAST MEDICAL HISTORY: The patient was diagnosed with HIV in 2001 and has been on Biktarvy. There is no history of biologic failure. There is a remote history of osteoporosis for which he took Fosamax. The patient had syphilis in 2009 and 2017 and had herpes simplex outbreak in 2014. PAST SURGICAL HISTORY: Noncontributory. ALLERGIES: Penicillin causes the patient to have hiccups. SOCIAL HISTORY: The patient was born in [place]. He has and two cats. Does not smoke cigarettes. He drinks socially. No current recreational drug use. REVIEW OF SYSTEMS: No fever. No cough. No shortness of breath. No nausea or vomiting. He had brief diarrhea yesterday associated with food, he thinks. No dysuria or hematuria. The patient had a pvsx-yh-nxwbkaya headache after his second infusion two weeks ago, but has no headache at this point. MEDICATIONS: As an outpatient include Biktarvy one tablet daily. PHYSICAL EXAMINATION: GENERAL: Revealed a well-nourished, well-developed male who is in no acute distress. VITAL SIGNS: Temperature was 97.6, heart rate was 91 and regular, blood pressure 122/79, respirations 15 per minute. HEENT: Normocephalic and atraumatic. Pupils round, equal, reactive. Oropharynx was without thrush or leukoplakia. NECK: Supple. There is no cervical or axillary adenopathy palpable. LUNGS: Clear to auscultation. HEART: Regular rhythm without murmurs or gallops. ABDOMEN: Soft and nontender. No hepatosplenomegaly. EXTREMITIES: Without cyanosis, clubbing, or edema. NEUROLOGIC: Grossly nonfocal for motor or sensory deficits. SKIN: No rashes evident. IMPRESSION: 1. Admission for participation in clinical trial. 2. HIV infection, well controlled. 3. History of osteoporosis. DISCUSSION: The patient is a very pleasant 48-year-old man who is participating in the [employer] protocol, who is participating in a [employer] protocol. He verbalizes comprehension of risks and benefits of his participation and at this point, he elects to continue. This will be the third of five infusions. PLAN: We will plan to dose him tomorrow morning at 8 o'clock and close observation for the following two nights in the hospital. Thong Marks M.D. DR: Frederick JOB#: [id number] CC: Thong Marks M.D.; Fax#: [phone] MTDD
--- NOTE | 2018-08-27 07:00 | NUR ---
HAND-OFF: Report given to CESAR Aggarwal. patient in stable condition.
--- NOTE | 2018-08-27 07:35 | NUR ---
NURSE NOTES: Pt received awake able to verbalize known needs. Currently NPO. Current plan of care will be followed. Dr. Marks is here with pt upon this writing
[2018-08-27] MEDS ORDERED: Investigational Drug 150 MG in NS 48 ML IV ONE (08:00)
--- NOTE | 2018-08-27 10:09 | NUR ---
CASE MANAGEMENT:REVIEW 08/26/18 48 yo male electively admitted for 3rd of 5 planned infusions of GS-9722 per [email or web address] protocol [id number].
--- NOTE | 2018-08-27 19:30 | NUR ---
HAND-OFF: Report given to Jossie GUERRERO.
--- NOTE | 2018-08-27 19:30 | NUR ---
Report received from CESAR Aggarwal. Patient alert, oriented. Bed in low position, locked, side rails up x2. Call light within reach. No distress noted. Will continue to monitor.
--- NOTE | 2018-08-27 19:50 | NUR ---
NURSE NOTES: Received report from CESAR Aggarwal. Received pt ambulating in the room, gait steady, denies any pain, no distress note. Safety measures maintained. Bed in lowest position and locked, side rails up x 2, call light within reach. Will continue to monitor.
[2018-08-27 20:00] VITALS: BP 123/74
--- NOTE | 2018-08-27 20:03 | General Progress Note ---
Progress Note Progress Note S: Feels well, no new complaints. Tolerated infusion of IP without any observered adverse effects. O: VSS Afebrile HEENT: nc/at Cor: reg Abd: soft Ext: no c/c/e Skin: no rash A: 1) Participation in [id number] 2) HIV, well controlled 3) atrial arrhythmia, intermittent. This morning before the infusion, pt was noted to have some asymptomatic atrial ectopic beats on EKG as the IVs were being placed. I asked him if he's had this before, and he disclosed that he had been referred to Dr. Ramses Pearl for cardiology evaluation of palpitations two or three years ago. He said the evaluation did not show any significant problems. I then contacted Dr. Pearl and shared with him today's EKG tracings. He agreed they showed atrial ectopy; we did not see any apparent acute changes that would preclude the administration of the IP. Because the arrhythmia appeared to be a previous medical condition, I decided we could proceed with the infusion. The patient was agreeable to this. He tolerated the infusion well, and had a normal heart rhythm and rate at the end of the infusion. P: 1) continue to observe per [id number] protocol. 2) advise f/u with Dr. Pearl as an outpatient Thong Marks MD Aug 27, 2018 20:03
[2018-08-28 02:00] VITALS: BP 130/77
--- NOTE | 2018-08-28 07:35 | NUR ---
HAND-OFF: Report given to CESAR Hart. Pt in stable condition.
--- NOTE | 2018-08-28 07:40 | NUR ---
NURSE NOTES: Received report from Aurelio Boyer RN. Bed in lowest position, call light within reach. Patient in stable condition. Will continue to monitor.
[2018-08-28 08:00] VITALS: BP 120/80
[2018-08-28 09:31] LABS: BASOPHILS % (AUTO) 0.8 % (0.0-2.0); EOSINOPHILS % (AUTO) 5.4 % (0.0-3.0); HEMATOCRIT 43.6 % (42.0-52.0); HEMOGLOBIN 14.7 G/DL (14.2-18.0); LYMPHOCYTES % (AUTO) 15.7 % (20.0-45.0); MEAN CORPUSCULAR VOLUME 91 FL (80-99); MONOCYTES % (AUTO) 8.3 % (1.0-10.0); NEUTROPHILS % (AUTO) 69.8 % (45.0-75.0); PLATELET COUNT 180 K/UL (150-450); RED BLOOD COUNT 4.77 M/UL (4.70-6.10); RED CELL DISTRIBUTION WIDTH 12.2 % (11.6-14.8); WHITE BLOOD COUNT 5.3 K/UL (4.8-10.8)
--- NOTE | 2018-08-28 14:55 | General Progress Note ---
Progress Note Progress Note S: Pt feels well, has no new complaints today O: VSS Afebrile HEENT: nc/at Lungs: clear Cor: reg rate, rhythm; no murmurs Abd: soft, NT Ext: no c/c/e Labs Test 08/26/18 15:40 08/28/18 09:00 White Blood Count 5.5 K/UL (4.8-10.8) 5.3 K/UL (4.8-10.8) Red Blood Count 5.03 M/UL (4.70-6.10) 4.77 M/UL (4.70-6.10) Hemoglobin 15.5 G/DL (14.2-18.0) 14.7 G/DL (14.2-18.0) Hematocrit 45.1 % (42.0-52.0) 43.6 % (42.0-52.0) Mean Corpuscular Volume 90 FL (80-99) 91 FL (80-99) Mean Corpuscular Hemoglobin 30.9 PG (27.0-31.0) 30.8 PG (27.0-31.0) Mean Corpuscular Hemoglobin Concent 34.4 G/DL (32.0-36.0) 33.8 G/DL (32.0-36.0) Red Cell Distribution Width 11.6 % (11.6-14.8) 12.2 % (11.6-14.8) Platelet Count 232 K/UL (150-450) 180 K/UL (150-450) Mean Platelet Volume 6.3 FL (6.5-10.1) 6.9 FL (6.5-10.1) Neutrophils (%) (Auto) 46.9 % (45.0-75.0) 69.8 % (45.0-75.0) Lymphocytes (%) (Auto) 38.5 % (20.0-45.0) 15.7 % (20.0-45.0) Monocytes (%) (Auto) 8.0 % (1.0-10.0) 8.3 % (1.0-10.0) Eosinophils (%) (Auto) 5.6 % (0.0-3.0) 5.4 % (0.0-3.0) Basophils (%) (Auto) 1.0 % (0.0-2.0) 0.8 % (0.0-2.0) A: 1) Participation in [id number] 2) HIV, well controlled 3) h/o cardiac arrhythmia, stable 4) note platelet count 232K -> 180K P: 1) monitor per protocol 2) check CBC in AM, if stable, then plan on d/c Thong Marks MD Aug 28, 2018 14:55
--- NOTE | 2018-08-28 19:25 | NUR ---
HAND-OFF: Report given to Aurelio Boyer RN.
--- NOTE | 2018-08-28 19:30 | NUR ---
NURSE NOTES: Awake, alert and oriented x 4, denies any pain, no distress noted. Safety measures maintained. Call light within reach. Will continue to monitor.
--- NOTE | 2018-08-29 07:24 | NUR ---
HAND-OFF: Report left for Tanner, RN. Pt in stable condition.
--- NOTE | 2018-08-29 07:50 | NUR ---
NURSE NOTES: Patient a/o x4 and had breakfast. Patient in stable condition. Will be discharged at 0900 today.
--- NOTE | 2018-08-29 10:10 | NUR ---
NURSE NOTES: Discharge instruction was given. Checked the belongings with the patient. Patient discharged in stable condition.
[2018-08-29 10:23] LABS: BASOPHILS % (AUTO) 1.1 % (0.0-2.0); EOSINOPHILS % (AUTO) 3.3 % (0.0-3.0); HEMATOCRIT 44.4 % (42.0-52.0); HEMOGLOBIN 14.9 G/DL (14.2-18.0); MEAN CORPUSCULAR VOLUME 91 FL (80-99); MONOCYTES % (AUTO) 12.8 % (1.0-10.0); NEUTROPHILS % (AUTO) 47.9 % (45.0-75.0); PLATELET COUNT 186 K/UL (150-450); RED BLOOD COUNT 4.88 M/UL (4.70-6.10); WHITE BLOOD COUNT 5.3 K/UL (4.8-10.8)
--- NOTE | 2018-08-29 22:46 | Discharge Summary ---
DATE OF ADMISSION: 08/26/2018 DATE OF DISCHARGE: 08/29/2018 DISCHARGE DIAGNOSES: 1. Participation in [employer] clinical trial [id number]. 2. HIV infection, well controlled. 3. Atrial arrhythmia, intermittent. 4. History of osteoporosis. 5. History of syphilis. 6. History of herpes simplex. HISTORY OF PRESENT ILLNESS AND HOSPITAL COURSE: The patient was electively admitted on the 08/26/2018 for the third of 5-planned biweekly doses of investigational product for the [employer] protocol as listed above. He tolerated the infusion well. The patient was noted to have an atrial arrhythmia as his IVs were being placed on the morning of the 08/27/2018. 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 Ramses Pearl. Dr. Pearl and I did not see any acute changes and I thought that it would be safe to proceed with the planned infusion. The patient had a regular rhythm at the end of the infusion and again tolerated it well without any observed adverse events. The patient recalled that he saw Dr. Pearl two years ago for palpitations and had a Holter, but there was no significant pathology demonstrated. I will ask the patient to follow up with Dr. Pearl as an outpatient and the patient will be seen in our office this coming week. Laboratory evaluations were done per the protocol. The patient had local CBCs on the day of admission and the day after the infusion on the day of discharge, the platelet count was 238,000, at admission; 180,000 the day after the infusion and 186,000 today on the day of discharge. This will continue to be followed by us as an outpatient. We will plan on readmitting the patient in 2 weeks for the fourth of 5 infusions. DISCHARGE MEDICATION: Biktarvy one tablet daily. CONDITION ON DISCHARGE: Good. Thong Marks M.D. DR: Frederick JOB#: [id number] CC: LIZANDRO
== END 2018-08-29 10:15 | disposition home or self-care (01) | DRG 977 ==
LOC: 3E 15:27
DX: B20 Human immunodeficiency virus [HIV] disease (principal); Z00.6 Encounter for examination for normal comparison and control in clinical research program; M81.0 Age-related osteoporosis without current pathological fracture
CPT/HCPCS: 36415; 85025

== ENCOUNTER 2018-09-09 06:06 | Inpatient (IN) | payer OTHER ==
[~2018-09-09] VITALS: Ht 162.6 cm; Wt 71.7 kg
[2018-09-23 15:45] LABS: EOSINOPHILS % (AUTO) 2.6 % (0.0-3.0); HEMATOCRIT 42.7 % (42.0-52.0); HEMOGLOBIN 14.9 G/DL (14.2-18.0); LYMPHOCYTES % (AUTO) 35.7 % (20.0-45.0); MEAN CORPUSCULAR VOLUME 89 FL (80-99); MONOCYTES % (AUTO) 7.1 % (1.0-10.0); NEUTROPHILS % (AUTO) 53.5 % (45.0-75.0); PLATELET COUNT 216 K/UL (150-450); RED BLOOD COUNT 4.82 M/UL (4.70-6.10); RED CELL DISTRIBUTION WIDTH 11.6 % (11.6-14.8); WHITE BLOOD COUNT 6.2 K/UL (4.8-10.8)
--- NOTE | 2018-09-23 16:09 | History & Physical ---
History and Physical History & Physicial Full H&P dictated 48 yo male electively admitted for fifth of 5 biweekly infusions of IP of [employer] protocol [id number]. He has felt well, and has had no interval adverse events. He has been under a lot of stress at work and feels tired at times. T 97.6 P 73 BP 106/69 R 16 wt 160 lbs HEENT: nc/at Lungs: clear Cor: reg Abd: soft, NT Skin: no rashes A: 1) participation in clinical trial 2) HIV, well controlled 3) h/o syphilis, HSV 4) h/o benign atrial arrhythmia P: 1) Continue with clinical trial 2) plan on infusion of IP at 8:30 am tomorrow, and then observe two nights in hospital Thong Marks MD Sep 23, 2018 16:09
--- NOTE | 2018-09-23 19:38 | NUR ---
NURSE NOTES: patient received. patient in no acute distress at this time. patient complains of no pain at this time. patient has no IV will be put in tomorrow AM. bed in lowest position and locked will continue to monitor.
--- NOTE | 2018-09-23 20:00 | NUR ---
HAND-OFF: Report given to Lily GUERRERO, pt in stable condition.
--- NOTE | 2018-09-23 20:45 | History and Physical Report ---
DATE OF ADMISSION: 09/23/2018 INPATIENT HISTORY AND PHYSICAL CHIEF COMPLAINT: The patient is electively admitted for participation in [employer] clinical trial [id number]. HISTORY OF PRESENT ILLNESS: The patient is a 48-year-old man followed by Dr. Thong Jensen for well-controlled HIV infection. He is now electively admitted for the fifth and final series of infusion of study product GS-9722 (or placebo). The patient has done well since the last infusion two weeks ago and has no new complaints. PAST MEDICAL HISTORY: The patient had the usual childhood diseases. He was diagnosed with HIV in 2001. He has always been suppressed. He has never had virologic failure to any agent. He has been on Biktarvy for several months. The patient also has a history of herpes simplex, syphilis, and osteoporosis. Two years ago, the patient noted intermittent palpitations and has been found subsequently to have an intermittent atrial arrhythmia, which is not clinically significant at this time. PAST SURGICAL HISTORY: Nothing related to this study. MEDICATIONS: Include Biktarvy one tablet once a day. ALLERGIES: The patient states that he gets hiccups with penicillin. SOCIAL HISTORY: The patient was born and raised in [place]. 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 No current recreational drug use. He drinks socially and does not smoke. REVIEW OF SYSTEMS: No fever. No chills. No shortness of breath. No cough. No chest pain. No nausea, vomiting, or diarrhea. No dysuria or hematuria. PHYSICAL EXAMINATION: VITAL SIGNS: Pending. HEENT: Normocephalic and atraumatic. Pupils are equal, round, and reactive. Oropharynx was without thrush or leukoplakia. NECK: Supple. There is no cervical or axillary adenopathy. LUNGS: Clear to auscultation. HEART: Had a regular rate and rhythm without murmurs or gallops. ABDOMEN: Soft and nontender. No hepatosplenomegaly. EXTREMITIES: Without cyanosis, clubbing, or edema. SKIN: Without rashes. NEUROLOGIC: Grossly nonfocal. IMPRESSION: 1. Participation in clinical trial. 2. HIV infection, well controlled. 3. Atrial arrhythmias. 4. History of herpes simplex. 5. History of syphilis. 6. History of osteoporosis, status post Fosamax therapy. DISCUSSION: The patient is a very pleasant 48-year-old man who is electively admitted for the fifth of five biweekly infusions of investigational agent. He has tolerated the first four doses well without observed adverse events. PLAN: We will infuse investigational product tomorrow morning and plan on observing the patient two nights in the hospital after the infusion. The patient has verbalized understanding of risks and benefits of participation in this trial, and he wishes to proceed. Thong Marks M.D. DR: KATIE JOB#: [id number] CC: LIZANDRO
[2018-09-23] MEDS: BIKTARVY ORAL SCH (21:06)
--- NOTE | 2018-09-24 07:15 | NUR ---
NURSE NOTES: Patient is in bed awake and able to verbalize needs. Stable, awaiting clinical trial infusion. Denies pain or SOB at this time. Plan of care discussed with patient, verbalized understanding. Skin is clean, dry, and intact. Patient is in good spirits with call light within reach. Will continue to monitor.
--- NOTE | 2018-09-24 07:25 | NUR ---
HAND-OFF: Report given to adelina hanson.
[2018-09-24] MEDS ORDERED: Investigational Drug 150 MG in NS 48 ML IV ONE (08:30)
--- NOTE | 2018-09-24 10:59 | NUR ---
CASE MANAGEMENT:REVIEW PATIENT HERE FOR CLINICAL TRIAL
--- NOTE | 2018-09-24 13:02 | General Progress Note ---
Progress Note Progress Note S: No new complaints. Pt tolerated infusion of IP this morning w/o observed AEs O: VSS, Afebrile HEENT: nc/at Neck: supple Lungs: clear Cor: reg Abd: soft, NT Skin: no rashes. Labs Test 09/23/18 15:25 White Blood Count 6.2 K/UL (4.8-10.8) Red Blood Count 4.82 M/UL (4.70-6.10) Hemoglobin 14.9 G/DL (14.2-18.0) Hematocrit 42.7 % (42.0-52.0) Mean Corpuscular Volume 89 FL (80-99) Mean Corpuscular Hemoglobin 31.0 PG (27.0-31.0) Mean Corpuscular Hemoglobin Concent 35.0 G/DL (32.0-36.0) Red Cell Distribution Width 11.6 % (11.6-14.8) Platelet Count 216 K/UL (150-450) Mean Platelet Volume 6.1 FL (6.5-10.1) Neutrophils (%) (Auto) 53.5 % (45.0-75.0) Lymphocytes (%) (Auto) 35.7 % (20.0-45.0) Monocytes (%) (Auto) 7.1 % (1.0-10.0) Eosinophils (%) (Auto) 2.6 % (0.0-3.0) Basophils (%) (Auto) 1.0 % (0.0-2.0) A: 1) participation in [id number] 2) HIV infection, well controlled 3) h/o atrial arrhythmias 4) h/o HSV P: 1) continue to manage per protocol 2) anticipate monitoring in house tonight and tomorrow night. Thong Marks MD Sep 24, 2018 13:02
--- NOTE | 2018-09-24 19:28 | NUR ---
HAND-OFF: Report given to Kasia GUERRERO. Patient is stable.
--- NOTE | 2018-09-24 19:30 | NUR ---
NURSE NOTES: Report received from CESAR Delgado. Patient resting in bed, no distress noted. Saline lock in LFA, intact. Bed in low position, call light within reach. Addendum: 09/24/18 at 2123 by Kasia Noel RN NURSE NOTES: Saline lock in LFA was discontinued by clinic nurse, patient states.
[2018-09-24] MEDS: BIKTARVY ORAL SCH (21:15)
--- NOTE | 2018-09-25 00:04 | NUR ---
HAND-OFF: Report given to CESAR Monterroso.
--- NOTE | 2018-09-25 00:05 | NUR ---
NURSE NOTES: Report received from CESAR Pedroza. Pt is in stable condition with no s/s of distress noted. Bed in the lowest position, bed brakes engaged, side rails up x3, and call light within reach. Will continue to monitor.
[2018-09-25 02:22] VITALS: BP 102/58
--- NOTE | 2018-09-25 07:41 | NUR ---
HAND-OFF: Report given to CESAR Davidson.
--- NOTE | 2018-09-25 07:44 | NUR ---
NURSE NOTES: Received pt from CESAR Holman. pt was resting comfortably no pain, no distress. call light w/in reach.
[2018-09-25 09:10] LABS: EOSINOPHILS % (AUTO) 2.9 % (0.0-3.0); HEMATOCRIT 43.5 % (42.0-52.0); HEMOGLOBIN 14.7 G/DL (14.2-18.0); LYMPHOCYTES % (AUTO) 41.1 % (20.0-45.0); MEAN CORPUSCULAR VOLUME 89 FL (80-99); MONOCYTES % (AUTO) 6.5 % (1.0-10.0); NEUTROPHILS % (AUTO) 48.5 % (45.0-75.0); PLATELET COUNT 191 K/UL (150-450); RED BLOOD COUNT 4.87 M/UL (4.70-6.10); RED CELL DISTRIBUTION WIDTH 11.6 % (11.6-14.8); WHITE BLOOD COUNT 4.4 K/UL (4.8-10.8)
[2018-09-25] MEDS ORDERED: NS 275ml ONE (09:58)
[2018-09-25] MEDS ORDERED: Tubing IV Secondary IV ONE (09:58)
--- NOTE | 2018-09-25 11:02 | General Progress Note ---
Progress Note Progress Note S: Pt doing well, has no new complaints O: VSS. Afebrile HEENT: nc/at Neck: supple Lungs: clear Cor: reg Abd: soft, NT Ext: no c/c/e Skin: no rashes Labs Test 09/23/18 15:25 09/25/18 08:30 White Blood Count 6.2 K/UL (4.8-10.8) 4.4 K/UL (4.8-10.8) Red Blood Count 4.82 M/UL (4.70-6.10) 4.87 M/UL (4.70-6.10) Hemoglobin 14.9 G/DL (14.2-18.0) 14.7 G/DL (14.2-18.0) Hematocrit 42.7 % (42.0-52.0) 43.5 % (42.0-52.0) Mean Corpuscular Volume 89 FL (80-99) 89 FL (80-99) Mean Corpuscular Hemoglobin 31.0 PG (27.0-31.0) 30.3 PG (27.0-31.0) Mean Corpuscular Hemoglobin Concent 35.0 G/DL (32.0-36.0) 33.9 G/DL (32.0-36.0) Red Cell Distribution Width 11.6 % (11.6-14.8) 11.6 % (11.6-14.8) Platelet Count 216 K/UL (150-450) 191 K/UL (150-450) Mean Platelet Volume 6.1 FL (6.5-10.1) 6.1 FL (6.5-10.1) Neutrophils (%) (Auto) 53.5 % (45.0-75.0) 48.5 % (45.0-75.0) Lymphocytes (%) (Auto) 35.7 % (20.0-45.0) 41.1 % (20.0-45.0) Monocytes (%) (Auto) 7.1 % (1.0-10.0) 6.5 % (1.0-10.0) Eosinophils (%) (Auto) 2.6 % (0.0-3.0) 2.9 % (0.0-3.0) Basophils (%) (Auto) 1.0 % (0.0-2.0) 1.0 % (0.0-2.0) A: 1) Participation in [id number] clinical trial, doing well 2) HIV, well-controlled 3) h/o atrial arrhythmia P: 1) continue management per [id number] 2) Anticipate discharge in AM Thong Marks MD Sep 25, 2018 11:02
--- NOTE | 2018-09-25 19:15 | NUR ---
NURSE NOTES: Report taken from CESAR Davidson. Patient is awake and in bed, A&Ox4. No signs of distress on room air. No complaints of pain. Patient here for clinical trial. No IV sites, MD aware. No skin issues present. Patient requested no VS past 2200, would like to sleep. Bed in lowest position, call light within reach.
--- NOTE | 2018-09-25 19:58 | NUR ---
HAND-OFF: Report given to CESAR Adkins.
[2018-09-25 20:00] VITALS: BP 118/60
[2018-09-25] MEDS: BIKTARVY ORAL SCH (22:22)
[2018-09-26] MEDS ORDERED: Patient's Own Med ORAL (07:02)
--- NOTE | 2018-09-26 07:03 | NUR ---
HAND-OFF: Report given to ARON Rodas. Patient is awake in bed, VS stable. Discharge order just placed by
--- NOTE | 2018-09-26 08:40 | NUR ---
NURSE NOTES: RECEIVED PATIENT A/A/OX4, AMBULATORY. IN STABLE CONDITION. D/C INSTRUCTIONS GIVEN. PERSONAL BELONGINGS REVIEWED AND NOTED. NO V/S WILL BE TAKEN PER MD. PATIENT IS PLEASANT AND COMFORTABLE. NO ACTE RESP DISTRESS NOTED. AWAITS FOR HIS TRANSPORTATION, RUDY. VERIFIED HOME ADDRESS AND PREFERRED TO BE THE ONE TO INFORM SIGNIFICANT OTHER FOR DISCHARGE. WILL CONT TO MONITOR.
--- NOTE | 2018-09-26 08:58 | NUR ---
NURSE NOTES: D/C HOME WITH STABLE CONDITION.
[2018-09-26 09:08] LABS: BASOPHILS % (AUTO) 0.7 % (0.0-2.0); EOSINOPHILS % (AUTO) 2.1 % (0.0-3.0); HEMATOCRIT 43.8 % (42.0-52.0); HEMOGLOBIN 14.9 G/DL (14.2-18.0); LYMPHOCYTES % (AUTO) 37.7 % (20.0-45.0); MEAN CORPUSCULAR VOLUME 89 FL (80-99); MONOCYTES % (AUTO) 7.8 % (1.0-10.0); NEUTROPHILS % (AUTO) 51.7 % (45.0-75.0); PLATELET COUNT 192 K/UL (150-450); RED BLOOD COUNT 4.92 M/UL (4.70-6.10); RED CELL DISTRIBUTION WIDTH 11.6 % (11.6-14.8); WHITE BLOOD COUNT 5.2 K/UL (4.8-10.8)
--- NOTE | 2018-09-27 23:30 | Discharge Summary ---
DATE OF ADMISSION: 09/23/2018 DATE OF DISCHARGE: 09/26/2018 HISTORY OF PRESENT ILLNESS AND HOSPITAL COURSE: The patient is a 48-year-old man, who is electively admitted to [facility] for participation in [employer] clinical trial [id number]. This was the fifth of planned 5 biweekly infusions of investigational product. The patient was administered the drug (or placebo), and there were no observed adverse events. He had no complaints during the hospital stay and his laboratory parameters were normal. The patient was discharged in good condition to home. DISCHARGE MEDICATIONS: Include Biktarvy tablets 1 p.o. daily. FOLLOWUP: The patient will be seen in follow-up in my office this week. Thong Marks M.D. DR: ALEXANDRA JOB#: [id number] CC:
== END 2018-09-26 09:10 | disposition home or self-care (01) | DRG 977 ==
LOC: 3E 09-23 15:01
DX: B20 Human immunodeficiency virus [HIV] disease (principal); Z00.6 Encounter for examination for normal comparison and control in clinical research program; Z86.19 Personal history of other infectious and parasitic diseases; I49.8 Other specified cardiac arrhythmias; M81.0 Age-related osteoporosis without current pathological fracture
CPT/HCPCS: 36415; 85025